=== PATIENT | male | born 1990 | race Caucasian/White ===

== ENCOUNTER 2018-12-08 15:42 | Emergency (ER) | payer OTHER ==
[~2018-12-08] VITALS: Ht 167.6 cm; Wt 74.8 kg
--- NOTE | 2018-12-08 16:20 | NUR ---
CAME IN FOR L WRIST/FOREARM ABRASION S/P SLIP AND FALL. + DEFORMITY NOTED, TO ER BED 10, HOOKED TO MONITOR, PROVIDED W WARM BLANKET, AWAITING MD RIVAS.
--- NOTE | 2018-12-08 17:00 | NUR ---
LINDSEY SCHWARTZ AT BEDSIDE
--- NOTE | 2018-12-08 17:19 | NUR ---
STONE OPERATOR AT BEDSIDE
[2018-12-08] MEDS ORDERED: HYDROCODONE/APAP 5/325MG 1 EACH TABLET ONE (17:26)
[2018-12-08] MEDS ORDERED: IBUPROFEN 600 MG TABLET PO ONE ×2 (17:27→17:30)
[2018-12-08] MEDS ORDERED: HYDROCODONE/APAP 5/325MG 1 EACH TABLET PO ONE (17:30)
[2018-12-08 18:27] VITALS: BP 122/70
--- NOTE | 2018-12-08 18:28 | NUR ---
TECH AT BEDSIDE, APPLIED SUGAR TONG LFA.
== END 2018-12-08 18:46 | disposition home or self-care (01) ==
LOC: ER 15:47
DX: S52.592A Other fractures of lower end of left radius, initial encounter for closed fracture (principal); S61.502A Unspecified open wound of left wrist, initial encounter; W01.0XXA Fall on same level from slipping, tripping and stumbling without subsequent striking against object, initial encounter; Y93.11 Activity, swimming; Y92.34 Swimming pool (public) as the place of occurrence of the external cause; Y99.8 Other external cause status
CPT/HCPCS: 73110